=== PATIENT | female | born 1935 | race Caucasian/White ===

== ENCOUNTER 2018-05-29 11:12 | Outpatient (CLI) | payer MEDICARE ==
[2018-05-29 12:09] LABS: #Basophils 0.1 thou/uL (0.0-0.2); #Eosinphils 0.2 thou/uL (0.0-0.7); #Lymphocytes 1.7 thou/uL (1.20-3.40); #Monocytes 0.4 thou/uL (0.11-0.59); %Basophils 0.9 % (0.0-1.0); %Eosinophils 2.9 % (0.0-10.0); %Lymphocytes 27.1 % (21.0-51.0); %Monocytes 6.8 % (0.0-10.0); %Neutrophils 62.2 % (42.0-75.0); Hemoglobin 12.9 g/dL (12.0-16.0); Mean Corpuscular HGB CONC 31.6 g/dL (32.0-36.0); Mean Corpuscular Volume 91.7 fL (78.0-98.0); Mean Platelet Volume 7.4 fL (7.4-10.4); Platelet Count 218 thou/uL (130-400); RBC Distribution Width 12.8 % (11.5-14.5); Red Blood Cell (RBC) Count 4.46 mill/uL (4.20-5.40); White Blood Cell (WBC) Count 6.4 thou/uL (4.8-10.8)
[2018-05-29 12:29] LABS: Anion Gap 10 mmol/L (10-20); BUN (Urea Nitrogen) 22 mg/dL (9.8-20.1); Calc. Creatinine Clearance 0 mL/min (70-130); Calcium 10.4 mg/dL (7.8-10.44); Carbon Dioxide 31 mmol/L (23-31); Chloride 102 mmol/L (98-107); Estimated GFR-MDRD 61; Glucose 106 mg/dL (83-110); Potassium 4.3 mmol/L (3.5-5.1); Sodium 139 mmol/L (136-145)
== END 2018-05-29 11:13 | disposition home or self-care (01) ==
LOC: LABBT 11:12
PROVIDERS: ATTEND Specialist
DX: Z01.812 Encounter for preprocedural laboratory examination (principal); K64.8 Other hemorrhoids
CPT/HCPCS: 80048; 85025

== ENCOUNTER 2018-05-31 05:43 | Day surgery (SDC) | payer MEDICARE ==
[2018-05-29 11:33] VITALS: BMI 18.5
[2018-05-31] MEDS ORDERED: Ketorolac Tromethamine 30 MG/ML VIAL IVP SCH (06:45)
[2018-05-31] MEDS ORDERED: MEROPENEM 1 GM/50 ML 1 GM in Premix Bag 1 BAG IVPB SCH (06:45)
[2018-05-31] MEDS ORDERED: Acetaminophen 1,000 MG in Premix Bag 1 BAG IVPB SCH (06:45)
[2018-05-31] MEDS ORDERED: Midazolam HCl 2 mg/2 ml Vial ONE (07:19)
[2018-05-31] MEDS ORDERED: Ketorolac Tromethamine 30 MG/ML VIAL ONE (07:19)
[2018-05-31] MEDS ORDERED: Bupivacaine HCl 0.5%/Epinephrine 1:200,000/PF 30 ml Vial ONE (09:57)
[2018-05-31] MEDS ORDERED: Lidocaine 2% Jelly 5 ML TUBE ONE (09:57)
[2018-05-31] MEDS ORDERED: Lidocaine 2% PF 5 ML VIAL ONE (09:57)
[2018-05-31] MEDS ORDERED: Fentanyl 100 MCG/2 ML VIAL ONE (10:00)
[2018-05-31] MEDS ORDERED: Ondansetron PF 4 MG/2 ML Vial ONE ×2 (11:58→17:08)
[2018-05-31] MEDS ORDERED: Heparin 10,000 UNITS/ 10 ML VIAL ONE (16:05)
[2018-05-31] MEDS ORDERED: Dexamethasone 20 MG/5 ML VIAL ONE (17:08)
[2018-05-31] MEDS ORDERED: Glycopyrrolate 0.2 MG/ML 5 ML SYRINGE ONE (17:08)
[2018-05-31] MEDS ORDERED: Lidocaine 1% PF 5 ML VIAL ONE (17:08)
[2018-05-31] MEDS ORDERED: PROPOFOL 200 MG/20 ML VIAL ONE (17:08)
--- NOTE | 2018-06-02 06:44 | OP ---
DATE OF PROCEDURE: 05/31/2018 PREOPERATIVE DIAGNOSES: Prolapsing hemorrhoids, bleeding. POSTOPERATIVE DIAGNOSES: Prolapsing hemorrhoids, bleeding, PPH stapled hemorrhoidectomy. ANESTHESIA: General. LOCAL: None. FINDINGS: Prolapsing hemorrhoids. DESCRIPTION OF PROCEDURE: The patient was taken to the operating room, where under general anesthesia in the prone position, jackknifed her perianal area, buttocks prepared with Betadine and draped in routine fashion. It was dilated with a speculum. Prolapsing hemorrhoids were noted. Working port and obturator with PPH stapled hemorrhoidectomy set was inserted easily into the lower rectum and working port was held in place with four quadrant sutures of 3-0 silk. Suture placement device was then inserted and at the apex, a pursestring suture of 2-0 Prolene was placed and then the suture placement device removed. The stapling device was inserted, placed the anvil above the pursestring 2-0 Prolene suture and then these sutures brought out the side holes of the stapling device and an air knot tied. Under tension, the pursestring suture was tied and stapler secured range and after about 30 seconds, the stapler was fired after assuring that the vagina was not incorporated by exam. Once this was completed, staple line was inspected, noted to be hemostatic and [id number] suture of 3-0 chromic and cautery was used. Gel-Foam roll placed along the staple line with Xylocaine jelly with epinephrine and applied. Good hemostasis was noted. The patient tolerated the procedure well. Job ID: [id number]
== END 2018-05-31 15:50 | disposition home or self-care (01) ==
LOC: SDC 05:43 → EEVIPCON 11:00 → SDC 15:50
PROVIDERS: ATTEND Specialist
PROC: 06BY3ZC Excision of Hemorrhoidal Plexus, Percutaneous Approach (ICD-10-PCS; principal; 2018-05-31)
DX: K64.8 Other hemorrhoids (principal); Z79.899 Other long term (current) drug therapy; Z79.02 Long term (current) use of antithrombotics/antiplatelets
CPT/HCPCS: 88304; J0131; J0670; J1100; J1644; J1885; J2001; J2185; J2250; J2405; J2704; J3010

== ENCOUNTER 2022-10-09 07:51 | Observation (INO) | payer MEDICARE ==
[2022-10-09 08:58] LABS: #Basophils 0.1 thou/uL (0.0-0.2); #Eosinphils 0.2 thou/uL (0.0-0.7); #Lymphocytes 1.4 thou/uL (1.20-3.40); #Monocytes 0.8 thou/uL (0.11-0.59); #Neutrophils 3.5 thou/uL (1.40-6.50); %Basophils 1.1 % (0.0-1.0); %Eosinophils 3.3 % (0.0-10.0); %Lymphocytes 23.2 % (21.0-51.0); %Neutrophils 58.4 % (42.0-75.0); ALT (SGPT) 25 U/L (8-55); AST (SGOT) 32 U/L (5-34); Albumin 4.2 g/dL (3.4-4.8); Alkaline Phosphatase 86 U/L (40-110); Anion Gap 15 mmol/L (10-20); BUN (Urea Nitrogen) 35 mg/dL (9.8-20.1); Bilirubin, Total 0.2 mg/dL (0.2-1.2); Calc. Creatinine Clearance 0 mL/min (70-130); Calcium 10.3 mg/dL (7.8-10.44); Carbon Dioxide 26 mmol/L (23-31); Chloride 102 mmol/L (98-107); Estimated GFR 34; Globulin 2.7 g/dL (2.4-3.5); Glucose 120 mg/dL (83-110); Hemoglobin 12.8 g/dL (12.0-16.0); Iron 54 ug/dL (50-170); Iron Binding Capacity, Total 305 mcg/dL (265-497); Mean Corpuscular HGB CONC 32.5 g/dL (32.0-36.0); Mean Corpuscular Hemoglobin 30.8 pg (27.0-31.0); Mean Corpuscular Volume 94.7 fl (78.0-98.0); Mean Platelet Volume 7.9 fL (7.4-10.4); Platelet Count 199 10x3/uL (130-400); Potassium 4.6 mmol/L (3.5-5.1); Protein, Total 6.9 g/dL (5.8-8.1); RBC Distribution Width 13.1 % (11.5-14.5); Red Blood Cell (RBC) Count 4.15 mill/uL (4.20-5.40); Sodium 138 mmol/L (136-145)
[2022-10-09 09:02] LABS: PTT 26.6 sec (22.9-36.1)
[2022-10-09 09:10] LABS: INR-International Normal Ratio 0.9; Prothrombin Time 12.9 sec (12.0-14.7)
[2022-10-09] MEDS ORDERED: metroNIDAZOLE 500 MG/100 ML BAG ONE (10:32)
[2022-10-09 10:42] LABS: Bilirubin Negative (Negative); Blood, Urine Negative (Negative); Clarity Clear (Clear); Glucose, Urine (Dipstick) Normal (Negative); Ketone, Urine 20 mg/dL (Negative); Leukocyte Negative Leu/uL (Negative); Nitrite Negative (Negative); Protein, Urine (Dipstick) Negative (Neg-Trace); Specific Gravity, Urine 1.049 (1.002-1.036); Urobilinogen Normal mg/dL (Less than 2)
[2022-10-09] MEDS ORDERED: Polyethylene Glycol 3350 17 GM Packet PO PRN (11:04)
[2022-10-09] MEDS ORDERED: Acetaminophen 325 MG TAB PO PRN (11:04)
[2022-10-09] MEDS ORDERED: Iopamidol-370 76% 500 ML MDV (1 ML CHARGE) ONE (11:45)
[2022-10-09] MEDS: Sodium Chloride 0.9% 1,000 ML IV SCH (14:55)
[2022-10-09] MEDS: metroNIDAZOLE 500 MG in Premix Bag 1 BAG IVPB SCH ×2 (14:55→21:50)
[2022-10-09 17:23] VITALS: BMI 13.6
[2022-10-09 20:03] LABS: Campy jejuni + coli by PCR Negative (Negative); STEC Shiga Toxin 1+2 Negative (Negative); Salmonella spp. by PCR Negative (Negative); Shigella spp + EIEC by PCR Negative (Negative)
[2022-10-09] MEDS ORDERED: Lorazepam 1 MG TAB PO SCH (21:30)
[2022-10-10 00:04] VITALS: TEMP 98.2
[2022-10-10] MEDS: Sodium Chloride 0.9% 1,000 ML IV SCH ×2 (04:01→06:00)
[2022-10-10 06:02] LABS: #Eosinphils 0.3 thou/uL (0.0-0.7); #Lymphocytes 1.5 thou/uL (1.20-3.40); #Monocytes 0.6 thou/uL (0.11-0.59); #Neutrophils 3.2 thou/uL (1.40-6.50); %Basophils 0.3 % (0.0-1.0); %Eosinophils 4.7 % (0.0-10.0); %Lymphocytes 26.8 % (21.0-51.0); %Monocytes 11.3 % (0.0-10.0); %Neutrophils 56.9 % (42.0-75.0); Mean Corpuscular HGB CONC 33.1 g/dL (32.0-36.0); Mean Corpuscular Hemoglobin 31.3 pg (27.0-31.0); Mean Corpuscular Volume 94.6 fl (78.0-98.0); Mean Platelet Volume 7.6 fL (7.4-10.4); Platelet Count 168 10x3/uL (130-400); RBC Distribution Width 12.9 % (11.5-14.5); Red Blood Cell (RBC) Count 3.52 mill/uL (4.20-5.40); White Blood Cell (WBC) Count 5.6 10x3/uL (4.8-10.8)
[2022-10-10] MEDS: metroNIDAZOLE 500 MG in Premix Bag 1 BAG IVPB SCH ×2 (06:02→14:10)
[2022-10-10 06:29] LABS: Anion Gap 12 mmol/L (10-20); BUN (Urea Nitrogen) 17 mg/dL (9.8-20.1); Calc. Creatinine Clearance 25 mL/min (70-130); Calcium 8.2 mg/dL (7.8-10.44); Carbon Dioxide 22 mmol/L (23-31); Chloride 108 mmol/L (98-107); Estimated GFR 70; Glucose 94 mg/dL (83-110); Potassium 3.8 mmol/L (3.5-5.1); Sodium 138 mmol/L (136-145)
[2022-10-10 08:49] VITALS: BP 150/68
[2022-10-10] MEDS ORDERED: Multivitamin W/ Minerals 1 TAB PO SCH (09:00)
[2022-10-10] MEDS ORDERED: Calcium Carbonate 600 MG TAB PO SCH (09:00)
[2022-10-10] MEDS ORDERED: Simvastatin 10 MG TAB PO SCH (21:00)
[2022-10-11] MEDS ORDERED: Ciprofloxacin Lactate/D5W 200 MG in Premix Bag 1 BAG IVPB SCH (09:00)
== END 2022-10-10 17:14 | disposition home or self-care (01) ==
LOC: ERS 07:51 → MSONC 11:04
PROVIDERS: ADMIT Hospitalist; ATTEND Hospitalist
DX: K25.4 Chronic or unspecified gastric ulcer with hemorrhage (principal); N17.9 Acute kidney failure, unspecified; D62 Acute posthemorrhagic anemia; M19.90 Unspecified osteoarthritis, unspecified site; I10 Essential (primary) hypertension; E78.5 Hyperlipidemia, unspecified; R91.8 Other nonspecific abnormal finding of lung field; Z86.73 Personal history of transient ischemic attack (TIA), and cerebral infarction without residual deficits; Z87.440 Personal history of urinary (tract) infections; Z79.02 Long term (current) use of antithrombotics/antiplatelets; Z79.899 Other long term (current) drug therapy
CPT/HCPCS: 74177; 80048; 80053; 81003; 82728; 83540; 83550; 85025 ×2; 85610; 85730; 86850; 86900; 86901; 87324; 87449; 87505; 93005; 96366 ×2; G0378 ×3; 36415; 82274; 96365; 96375; J0744; J7050; Q9967

== ENCOUNTER 2023-04-26 11:13 | Inpatient (IN) | payer MEDICARE ==
[2023-04-26 11:57] LABS: #Eosinphils 0.2 thou/uL (0.0-0.7); #Monocytes 0.8 thou/uL (0.11-0.59); #Neutrophils 6.7 thou/uL (1.40-6.50); %Basophils 0.4 % (0.0-1.0); %Eosinophils 1.4 % (0.0-10.0); %Lymphocytes 30.9 % (21.0-51.0); %Monocytes 6.8 % (0.0-10.0); %Neutrophils 60.1 % (42.0-75.0); Hematocrit 41.7 % (36.0-47.0); Hemoglobin 13.1 g/dL (12.0-16.0); Mean Corpuscular HGB CONC 31.4 g/dL (32.0-36.0); Mean Corpuscular Hemoglobin 29.4 pg (27.0-31.0); Mean Corpuscular Volume 93.7 fl (78.0-98.0); Mean Platelet Volume 9.6 fL (7.4-10.4); Platelet Count 214 10x3/uL (130-400); RBC Distribution Width 14.4 % (11.5-14.5); Red Blood Cell (RBC) Count 4.45 mill/uL (4.20-5.40); White Blood Cell (WBC) Count 11.1 10x3/uL (4.8-10.8)
[2023-04-26 12:22] LABS: ALT (SGPT) 22 U/L (8-55); AST (SGOT) 28 U/L (5-34); Albumin 4.7 g/dL (3.4-4.8); Alkaline Phosphatase 70 U/L (40-110); Anion Gap 22 mmol/L (10-20); BUN (Urea Nitrogen) 27 mg/dL (9.8-20.1); Bilirubin, Total 0.6 mg/dL (0.2-1.2); Calc. Creatinine Clearance 0 mL/min (70-130); Calcium 10.3 mg/dL (7.8-10.44); Carbon Dioxide 28 mmol/L (23-31); Chloride 97 mmol/L (98-107); Estimated GFR 58; Glucose 171 mg/dL (83-110); Potassium 3.6 mmol/L (3.5-5.1); Protein, Total 6.7 g/dL (5.8-8.1); Sodium 143 mmol/L (136-145)
[2023-04-26 12:35] LABS: Troponin I 0.303 ng/mL (< 0.028)
[2023-04-26] MEDS ORDERED: Aspirin Chewable 81 MG TAB ONE (12:36)
[2023-04-26] MEDS ORDERED: Nitroglycerin 2% Ointment 1 INCH/1 GM Packet ONE (12:47)
[2023-04-26] MEDS ORDERED: methylPREDNISolone Sod Succ/PF 125 MG/2 ML VIAL ONE (12:48)
[2023-04-26] MEDS ORDERED: Guaifenesin DM 100-10/5 ML UDCUP PO PRN (12:54)
[2023-04-26] MEDS ORDERED: Acetaminophen 325 MG TAB PO PRN (12:54)
[2023-04-26] MEDS ORDERED: Ondansetron PF 4 MG/2 ML Vial IVP PRN (12:54)
[2023-04-26] MEDS ORDERED: Calcium Carbonate 500 MG ChewTAB PO PRN (12:54)
[2023-04-26] MEDS ORDERED: Senokot S 8.6-50 MG TAB PO PRN (12:54)
[2023-04-26] MEDS ORDERED: Ipratropium/Albuterol 3 ML NEB NEB PRN (13:25)
[2023-04-26] MEDS ORDERED: Labetalol HCl 100 MG/20 ML VIAL SLOW IVP SCH (13:30)
[2023-04-26 14:36] LABS: Actual Bicarbonate (HCO3a) 30.8 mEq/L (22-28); Base Excess (BEa) 5.2 mEq/L (-2.0 to +3.0); CO2 Tension 49.1 mmHg (35.0-45.0); Carboxyhemoglobin (COHb) 0.8 gm% (0.0-3.0); Hematocrit-ABG 40 % (36.0-47.0); Hemoglobin (Hb) 13.6 g/dL (12.0-16.0); O2 Tension (PaO2), arterial 83.9 mmHg (> 60.0); Potassium - ABG Lab 3.73 mmol/L (3.70-5.30); pH, Arterial 7.416 (7.35-7.45)
[2023-04-26 14:37] LABS: ALV-art Gradient 104.275 mmHg (0-20); Puncture Site Right Radial
[2023-04-26] MEDS ORDERED: Metoprolol Tartrate 5 MG/5 ML VIAL IVP PRN (15:27)
[2023-04-26 15:30] LABS: Troponin I 3.478 ng/mL (< 0.028)
[2023-04-26] MEDS ORDERED: Heparin 25,000 units/D5W 500 ML IVPB SCH (16:00)
[2023-04-26 16:39] LABS: Hemoglobin 12.9 g/dL (12.0-16.0); Platelet Count 211 10x3/uL (130-400)
[2023-04-26] MEDS ORDERED: FLU VACC QS2023(65UP)/MF59C/PF 60 MCG/0.5 ML SYRINGE IM ONE (17:00)
[2023-04-26 17:13] LABS: Troponin I 4.315 ng/mL (< 0.028)
[2023-04-26] MEDS: Benzonatate 100 MG CAP PO SCH ×2 (17:53→20:27)
[2023-04-26] MEDS: Heparin 10,000 UNITS/ 10 ML VIAL SLOW IVP SCH (18:12)
[2023-04-26] MEDS: Lorazepam 1 MG TAB PO SCH (20:27)
[2023-04-26] MEDS: Metoprolol Tartrate 25 MG TAB PO SCH (20:27)
[2023-04-26] MEDS ORDERED: Simvastatin 10 MG TAB PO SCH (21:00)
[2023-04-27 01:36] LABS: Bacteria/HPF None Seen HPF (None Seen); Bilirubin Negative (Negative); Blood, Urine Negative (Negative); CAUTI Indications for Culture Fever or rigors; Clarity Clear (Clear); Glucose, Urine (Dipstick) 500 mg/dL (Negative); Ketone, Urine 20 mg/dL (Negative); Leukocyte Negative Leu/uL (Negative); Nitrite Negative (Negative); Protein, Urine (Dipstick) 50 mg/dL (Neg-Trace); Specific Gravity, Urine 1.047 (1.002-1.036); Squamous Epithelial None Seen HPF (0-3); Urobilinogen Normal mg/dL (Less than 2); WBC/HPF 0-3 HPF (0-3); pH, Urine 6.5 (5.0-9.0)
[2023-04-27 01:38] LABS: Urine Culture Reflex No No
[2023-04-27] MEDS: Heparin 10,000 UNITS/ 10 ML VIAL SLOW IVP SCH (01:41)
[2023-04-27 03:48] LABS: #Monocytes 1.3 thou/uL (0.11-0.59); %Basophils 0.1 % (0.0-1.0); %Lymphocytes 5.8 % (21.0-51.0); %Monocytes 7.8 % (0.0-10.0); %Neutrophils 85.9 % (42.0-75.0); Hematocrit 38.2 % (36.0-47.0); Hemoglobin 12.4 g/dL (12.0-16.0); Mean Corpuscular HGB CONC 32.5 g/dL (32.0-36.0); Mean Corpuscular Hemoglobin 29.5 pg (27.0-31.0); Mean Platelet Volume 10.2 fL (7.4-10.4); Platelet Count 218 10x3/uL (130-400); RBC Distribution Width 14.4 % (11.5-14.5); Red Blood Cell (RBC) Count 4.21 mill/uL (4.20-5.40); White Blood Cell (WBC) Count 16.3 10x3/uL (4.8-10.8)
[2023-04-27 03:53] LABS: Mean Corpuscular Volume 90.7 fl (78.0-98.0)
[2023-04-27 04:14] LABS: Anion Gap 15 mmol/L (10-20); BUN (Urea Nitrogen) 29 mg/dL (9.8-20.1); Calc. Creatinine Clearance 22 mL/min (70-130); Calcium 9.9 mg/dL (7.8-10.44); Carbon Dioxide 29 mmol/L (23-31); Cardiac Risk 2.2 (Less than 4.5); Chloride 98 mmol/L (98-107); Cholesterol 161 mg/dl (< 200 Desired); Estimated GFR 61; Glucose 154 mg/dL (83-110); HDL Cholesterol 74 mg/dL (>60 Neg Risk); LDL Cholesterol, Calculated 65 mg/dL; Potassium 4.8 mmol/L (3.5-5.1); Sodium 137 mmol/L (136-145); Triglycerides 111 mg/dL (Less than 150)
[2023-04-27] MEDS ORDERED: Aspirin Chewable 81 MG TAB PO SCH (09:00)
[2023-04-27] MEDS: Digoxin 0.125 MG TAB PO SCH (09:56)
[2023-04-27] MEDS: Lorazepam 1 MG TAB PO SCH ×3 (09:56→21:00)
[2023-04-27] MEDS: Benzonatate 100 MG CAP PO SCH ×3 (09:57→21:16)
[2023-04-27] MEDS: Metoprolol Tartrate 25 MG TAB PO SCH ×3 (09:57→21:16)
[2023-04-27] MEDS: Apixaban 2.5 MG TAB PO SCH (21:15)
[2023-04-27] MEDS: Atorvastatin Calcium 20 MG TAB PO SCH (21:16)
[2023-04-28 04:33] LABS: #Monocytes 1.2 thou/uL (0.11-0.59); %Basophils 0.1 % (0.0-1.0); %Eosinophils 0.2 % (0.0-10.0); %Lymphocytes 8.2 % (21.0-51.0); %Monocytes 8.4 % (0.0-10.0); %Neutrophils 82.5 % (42.0-75.0); Hematocrit 38.3 % (36.0-47.0); Hemoglobin 12.3 g/dL (12.0-16.0); Mean Corpuscular HGB CONC 32.1 g/dL (32.0-36.0); Mean Corpuscular Hemoglobin 29.9 pg (27.0-31.0); Mean Corpuscular Volume 93.2 fl (78.0-98.0); Mean Platelet Volume 10.7 fL (7.4-10.4); Platelet Count 172 10x3/uL (130-400); RBC Distribution Width 14.5 % (11.5-14.5); Red Blood Cell (RBC) Count 4.11 mill/uL (4.20-5.40); White Blood Cell (WBC) Count 14.6 10x3/uL (4.8-10.8)
[2023-04-28 04:54] LABS: Anion Gap 11 mmol/L (10-20); BUN (Urea Nitrogen) 39 mg/dL (9.8-20.1); Calc. Creatinine Clearance 19 mL/min (70-130); Calcium 9.6 mg/dL (7.8-10.44); Carbon Dioxide 29 mmol/L (23-31); Chloride 98 mmol/L (98-107); Estimated GFR 53; Glucose 154 mg/dL (83-110); Potassium 4.8 mmol/L (3.5-5.1); Sodium 133 mmol/L (136-145)
[2023-04-28] MEDS: Benzonatate 100 MG CAP PO SCH ×3 (09:14→20:45)
[2023-04-28] MEDS: Apixaban 2.5 MG TAB PO SCH ×2 (09:14→20:45)
[2023-04-28] MEDS: Clopidogrel Bisulfate 75 MG TAB PO SCH (09:14)
[2023-04-28] MEDS: Metoprolol Tartrate 25 MG TAB PO SCH ×2 (09:15→15:21)
[2023-04-28] MEDS: Digoxin 0.125 MG TAB PO SCH (09:15)
[2023-04-28] MEDS: Lorazepam 1 MG TAB PO SCH (09:15)
[2023-04-28] MEDS: Atorvastatin Calcium 20 MG TAB PO SCH (20:45)
[2023-04-28] MEDS: Lorazepam 1 MG TAB PO PRN (20:48)
[2023-04-29 03:13] VITALS: BP 116/52
[2023-04-29 04:36] LABS: #Monocytes 1.2 thou/uL (0.11-0.59); #Neutrophils 10.7 thou/uL (1.40-6.50); %Basophils 0.1 % (0.0-1.0); %Eosinophils 0.2 % (0.0-10.0); %Lymphocytes 8.1 % (21.0-51.0); %Monocytes 9.1 % (0.0-10.0); Hemoglobin 11.9 g/dL (12.0-16.0); Mean Corpuscular HGB CONC 32.2 g/dL (32.0-36.0); Mean Corpuscular Hemoglobin 29.8 pg (27.0-31.0); Mean Corpuscular Volume 92.7 fl (78.0-98.0); Mean Platelet Volume 10.5 fL (7.4-10.4); Platelet Count 170 10x3/uL (130-400); RBC Distribution Width 14.2 % (11.5-14.5); Red Blood Cell (RBC) Count 3.99 mill/uL (4.20-5.40)
[2023-04-29 05:23] LABS: Anion Gap 15 mmol/L (10-20); BUN (Urea Nitrogen) 44 mg/dL (9.8-20.1); Calc. Creatinine Clearance 21 mL/min (70-130); Calcium 9.2 mg/dL (7.8-10.44); Carbon Dioxide 27 mmol/L (23-31); Chloride 101 mmol/L (98-107); Estimated GFR 60; Glucose 148 mg/dL (83-110); Potassium 4.7 mmol/L (3.5-5.1); Sodium 138 mmol/L (136-145)
[2023-04-29 09:11] VITALS: BMI 13.5
[2023-04-29] MEDS: Digoxin 0.125 MG TAB PO SCH (10:00)
[2023-04-29] MEDS: Clopidogrel Bisulfate 75 MG TAB PO SCH (10:01)
[2023-04-29] MEDS: Benzonatate 100 MG CAP PO SCH ×3 (10:01→21:11)
[2023-04-29] MEDS: Apixaban 2.5 MG TAB PO SCH ×2 (10:01→21:10)
[2023-04-29] MEDS: Atorvastatin Calcium 20 MG TAB PO SCH (21:11)
[2023-04-29] MEDS: Lorazepam 1 MG TAB PO PRN (21:14)
[2023-04-30 05:10] LABS: Anion Gap 13 mmol/L (10-20); BUN (Urea Nitrogen) 43 mg/dL (9.8-20.1); Calc. Creatinine Clearance 24 mL/min (70-130); Calcium 8.9 mg/dL (7.8-10.44); Carbon Dioxide 28 mmol/L (23-31); Chloride 103 mmol/L (98-107); Estimated GFR 73; Glucose 147 mg/dL (83-110); Potassium 4.9 mmol/L (3.5-5.1); Sodium 139 mmol/L (136-145)
[2023-04-30 07:23] LABS: #Eosinphils 0.1 thou/uL (0.0-0.7); #Monocytes 0.9 thou/uL (0.11-0.59); #Neutrophils 8.1 thou/uL (1.40-6.50); %Basophils 0.1 % (0.0-1.0); %Eosinophils 0.5 % (0.0-10.0); %Lymphocytes 8.7 % (21.0-51.0); %Neutrophils 81.4 % (42.0-75.0); Hematocrit 38.3 % (36.0-47.0); Hemoglobin 12.1 g/dL (12.0-16.0); Mean Corpuscular HGB CONC 31.6 g/dL (32.0-36.0); Mean Corpuscular Hemoglobin 29.6 pg (27.0-31.0); Mean Corpuscular Volume 93.6 fl (78.0-98.0); Mean Platelet Volume 10.3 fL (7.4-10.4); Platelet Count 195 10x3/uL (130-400); RBC Distribution Width 14.1 % (11.5-14.5); Red Blood Cell (RBC) Count 4.09 mill/uL (4.20-5.40)
[2023-04-30 07:59] VITALS: TEMP 96
[2023-04-30] MEDS: Benzonatate 100 MG CAP PO SCH (08:37)
[2023-04-30] MEDS: Clopidogrel Bisulfate 75 MG TAB PO SCH (08:37)
[2023-04-30] MEDS: Apixaban 2.5 MG TAB PO SCH (08:38)
[2023-04-30] MEDS: Digoxin 0.125 MG TAB PO SCH (08:38)
== END 2023-04-30 10:20 | disposition hospice, home (50) | DRG 280 ==
LOC: ERS 11:13 → IMCU/EMU 14:09
PROVIDERS: ADMIT Hospitalist; ATTEND Internal Medicine
PROC: 4A033R1 Measurement of Arterial Saturation, Peripheral, Percutaneous Approach (ICD-10-PCS; principal; 2023-04-26)
PROC: 5A09357 Assistance with Respiratory Ventilation, Less than 24 Consecutive Hours, Continuous Positive Airway Pressure (ICD-10-PCS; 2023-04-26)
DX: I11.0 Hypertensive heart disease with heart failure (principal); I21.A1 Myocardial infarction type 2; E43 Unspecified severe protein-calorie malnutrition; J96.01 Acute respiratory failure with hypoxia; I50.21 Acute systolic (congestive) heart failure; E87.20 Acidosis, unspecified; I48.20 Chronic atrial fibrillation, unspecified; I16.1 Hypertensive emergency; Z68.1 Body mass index [BMI] 19.9 or less, adult; Z51.5 Encounter for palliative care; Z66 Do not resuscitate; E78.5 Hyperlipidemia, unspecified; Z79.899 Other long term (current) drug therapy; Z90.710 Acquired absence of both cervix and uterus; Z90.49 Acquired absence of other specified parts of digestive tract; Z98.49 Cataract extraction status, unspecified eye; Z98.890 Other specified postprocedural states; Z79.01 Long term (current) use of anticoagulants; Z90.89 Acquired absence of other organs
CPT/HCPCS: 36415; 36416; 71045; 71275; 80048; 80053; 80061; 81001; 82805; 83880; 84484; 85025; 85379; 85730; 86140; 93005; 93010; 93306; 94660; 94760; 96374; J1644; J2930